=== PATIENT | female | born 1955 | race Caucasian/White ===

== ENCOUNTER 2018-12-27 09:23 | Inpatient (IN) | payer MEDICARE ==
[~2018-12-27] VITALS: Ht 152.4 cm; Wt 79.8 kg
--- NOTE | 2018-12-27 09:55 | NUR ---
GRAIN ELEVATOR AGENTSAGGER SOAK NOTES Received Patient resting and watching TV in bed. A/O x 4. VS stable with no acute distress. Breathing even and unlabored on 4LPM via NC with no respiratory distress. Denies pain. Telemonitor in place and operational reading SR HR 80s. 20g PIV on LFA clean, dry, intact and flushing well. All needs rendered at this time. Will continue to monitor.
[2018-12-27] MEDS ORDERED: FLUO20CA36 PO (10:30)
[2018-12-27] MEDS ORDERED: INSU100V7 SQ (10:30)
[2018-12-27] MEDS ORDERED: BLOO-538 IN (10:30)
[2018-12-27] MEDS ORDERED: GABA-534 PO (10:30)
[2018-12-27] MEDS ORDERED: GLUC100017 PO (10:30)
[2018-12-27] MEDS ORDERED: ROSU5TAB PO (10:30)
[2018-12-27] MEDS ORDERED: CALC667C6 PO (10:30)
[2018-12-27] MEDS ORDERED: PANT40TA4 PO (10:30)
[2018-12-27] MEDS ORDERED: CALC0.253 PO (10:30)
[2018-12-27] MEDS ORDERED: POLY17PO4 PO (10:30)
[2018-12-27] MEDS ORDERED: ASPI-605 PO (10:30)
[2018-12-27] MEDS ORDERED: BUME2TAB7 PO (10:30)
[2018-12-27] MEDS ORDERED: CARV12.5 PO (10:30)
[2018-12-27] MEDS ORDERED: INSU100V39 SQ (10:30)
[2018-12-27] MEDS ORDERED: AMLO10TA4 PO (10:30)
[2018-12-27] MEDS ORDERED: CHLO473M3 MM (10:30)
[2018-12-27] MEDS ORDERED: LATA7.5D OP (10:30)
[2018-12-27] MEDS ORDERED: AZEL137S7 NS (10:30)
[2018-12-27] MEDS ORDERED: NITR0.4T48 SL (10:37)
[2018-12-27] MEDS ORDERED: DIME25TA2 PO (10:37)
[2018-12-27] MEDS ORDERED: MECL-126 PO (10:37)
[2018-12-27] MEDS ORDERED: ACET-907 PO (10:37)
[2018-12-27] MEDS ORDERED: ZOLP5TAB2 PO (10:37)
[2018-12-27] MEDS ORDERED: PHEN180S MM (10:37)
[2018-12-27] MEDS ORDERED: SENN-18 PO (10:37)
[2018-12-27 12:00] VITALS: BP 159/77
[2018-12-27] MEDS ORDERED: NITROGLYCERIN 0.4 MG/TAB BOTTLE SL PRN (13:30)
[2018-12-27] MEDS ORDERED: MAGNESIUM HYDROXIDE 30 ML UDC PO PRN (13:30)
[2018-12-27] MEDS ORDERED: DEXTROSE 50%-WATER 50 ML DISP.SYRIN IV PRN (13:30)
[2018-12-27] MEDS ORDERED: Z GUARD REMEDY 2 OZ OINT TP PRN (13:30)
[2018-12-27] MEDS ORDERED: SENNOSIDES 8.6 MG TABLET PO PRN (13:30)
[2018-12-27] MEDS ORDERED: HYDROCODONE/APAP 5/325MG 1 EACH TABLET PO PRN (13:30)
[2018-12-27] MEDS ORDERED: MAG HYDROX/AL HYDROX/SIMETH 30 ML UDC PO PRN (13:30)
[2018-12-27] MEDS ORDERED: ONDANSETRON HCL/PF 4 MG/2 ML VIAL IVP PRN (13:30)
[2018-12-27 14:11] LABS: BASOPHILS # (AUTO) 0.1 /CMM (0.0-0.2); BASOPHILS % (AUTO) 0.7 % (0.0-2.0); EOSINOPHILS % (AUTO) 1.9 % (0.0-6.0); HEMATOCRIT 35 % (33-45); HEMOGLOBIN 11.8 g/dL (11.5-14.8); LYMPHOCYTES # (AUTO) 0.9 /CMM (0.8-4.8); LYMPHOCYTES % (AUTO) 9.8 % (20.0-44.0); MEAN CORPUSCULAR HGB CONC 34 g/dl (31.0-36.0); MEAN CORPUSCULAR VOLUME 90 fL (82-100); MONOCYTES # (AUTO) 0.9 /CMM (0.1-1.30); MONOCYTES % (AUTO) 9.4 % (2.0-12.0); NEUTROPHILS # (AUTO) 7.4 /CMM (1.8-8.9); NEUTROPHILS % (AUTO) 78.2 % (43.0-81.0); PLATELET COUNT (AUTO) 206 /CMM (150-450); RED BLOOD CELL COUNT(AUTO) 3.83 MIL/uL (4.0-5.2); WHITE BLOOD COUNT (AUTO) 9.5 K/uL (4.3-11.0)
[2018-12-27 14:30] LABS: ALBUMIN 3.2 g/dL (3.4-5.0); BILIRUBIN,TOTAL 0.5 mg/dL (0.2-1.0); CALCIUM, SERUM 8.8 mg/dL (8.5-10.1); CREATININE 2.3 mg/dL (0.6-1.3); POTASSIUM 3.9 mmol/L (3.5-5.1)
--- NOTE | 2018-12-27 15:37 | NUR ---
SOCIAL MEDIA DESIGNER NOTES Room change from 109-1 to 101-1. Patient in stable condition. Will continue to monitor.
[2018-12-27 16:00] VITALS: BP 173/78
[2018-12-27] MEDS ORDERED: PHENOL-PHENOLATE CHLORASEPTIC 177 ML SPRAY MM PRN (16:00)
[2018-12-27] MEDS ORDERED: MECLIZINE HCL 25 MG TABLET PO PRN (16:00)
[2018-12-27] MEDS: CEFTRIAXONE 1 G in IV D5W 50 ML IV SCH (16:27)
[2018-12-27] MEDS: CALCIUM ACETATE 667 MG TABLET PO SCH (16:27)
[2018-12-27] MEDS: CARVEDILOL 12.5 MG TABLET PO SCH (16:28)
[2018-12-27] MEDS: CHLORHEXIDINE GLUCONATE 15 ML UDC MM SCH ×2 (16:28→17:00)
[2018-12-27] MEDS: GUAIFENESIN/D-METHORPHAN HB 5 ML UDC PO PRN (17:13)
[2018-12-27] MEDS: BLOOD SUGAR DIAGNOSTIC 1 EACH STRIP IN SCH ×2 (17:14→21:49)
[2018-12-27] MEDS: AZITHROMYCIN 500 MG in IV D5W 250 ML IV SCH ×2 (17:17→18:00)
--- NOTE | 2018-12-27 19:15 | NUR ---
BLEACH ANALYST NOTES Obtained order for Lorazepam 0.5mg PO x one time only, per Patients request from Rody BECERRA. Will endorse to administer to oncoming shift.
--- NOTE | 2018-12-27 19:19 | NUR ---
CAN FILLER NOTES RECEIVED PT ON BED. A/O X 4. ON NASAL CANNULA NO RESPIRATORY DISTRESS NOTED. ONGOING HD. ON TELE MONITOR SR. IV ACCESS G20 ON LFA PATENT AND INTACT. HD ACCESS ON LCW , CLEAN NO BLEEDING NOTED. HEAD OF BED ELEVATED. SIDE RAILS UP. CALL LIGHT WITHIN REACH. BED ALARM ON. WILL CONTINUE TO MONITOR PT CLOSELY.
[2018-12-27] MEDS ORDERED: LORAZEPAM 0.5 MG TABLET PO ONE (19:30)
--- NOTE | 2018-12-27 19:42 | NUR ---
POWDER MILL OPERATOR CLOSING NOTES Patient resting in bed. A/O x 4. VS stable with no acute distress. Breathing even and unlabored on 2LPM via NC with no respiratory distress. Denies pain. Telemonitor in place and operational reading SR HR 80s. 20g PIV on LFA clean, dry, intact and flushing well. Patient undergoing dialysis at this time. All needs rendered at this time. Will endorse plan of care to oncoming shift.
[2018-12-27 20:00] VITALS: BP 155/84
[2018-12-27] MEDS ORDERED: ALBUTEROL HALF STRENGTH 1.25 MG/3 ML VIAL.NEB NEB PRN (21:30)
[2018-12-27] MEDS: LATANOPROST EYE DROP 0.005% 2.5 ML BOTTLE OP SCH (21:49)
[2018-12-27] MEDS: INSULIN GLARGINE, 100 UNIT/ML CARTRIDGE SQ SCH (21:50)
[2018-12-27] MEDS: INSULIN REGULAR, HUMAN 100 UNIT/ML 3 ML VIAL SQ PRN (21:52)
[2018-12-27] MEDS: ZOLPIDEM TARTRATE 5 MG TABLET PO PRN (21:52)
[2018-12-27] MEDS ORDERED: AZITHROMYCIN 500 MG in IV D5W 250 ML IV ONE (22:00)
--- NOTE | 2018-12-27 22:06 | NUR ---
DESKTOP ADMINISTRATOR NOTES CALLED PHARMACY REGARDING AZITHROMYCIN NON ADMIN DUE TO HD. PER PHARMACY ORDER ONE TIME DOSE SO THE RN CAN SCAN.
--- NOTE | 2018-12-27 22:28 | NUR ---
LATIN AMERICAN STUDIES DIRECTOR NOTES PT REQUESTING BREATHING TX. HOUSEKEEPING MANAGER ORDERED BREATHING TX Q4H PRN
[2018-12-27] MEDS ORDERED: IPRATROPIUM NEB FS 0.5 MG/2.5 ML AMPUL.NEB NEB SCH (23:30)
[2018-12-28] VITALS: BP_SYST 158; BP_SYST 162; BP_DIAS 62; BP_DIAS 71
[2018-12-28] MEDS: GUAIFENESIN/D-METHORPHAN HB 5 ML UDC PO PRN ×2 (01:18→22:16)
[2018-12-28 04:00] VITALS: BP 158/64
[2018-12-28 06:39] LABS: BASOPHILS # (AUTO) 0.1 /CMM (0.0-0.2); BASOPHILS % (AUTO) 0.6 % (0.0-2.0); EOSINOPHILS % (AUTO) 1.7 % (0.0-6.0); HEMATOCRIT 31 % (33-45); HEMOGLOBIN 11.4 g/dL (11.5-14.8); LYMPHOCYTES % (AUTO) 10.7 % (20.0-44.0); MEAN CORPUSCULAR HGB CONC 37 g/dl (31.0-36.0); MEAN CORPUSCULAR VOLUME 98 fL (82-100); MONOCYTES % (AUTO) 10.9 % (2.0-12.0); NEUTROPHILS % (AUTO) 76.1 % (43.0-81.0); PLATELET COUNT (AUTO) 169 /CMM (150-450); RED BLOOD CELL COUNT(AUTO) 3.15 MIL/uL (4.0-5.2); WHITE BLOOD COUNT (AUTO) 9.2 K/uL (4.3-11.0)
[2018-12-28 06:50] LABS: THYROID STIMULATING HORMONE 1.715 uIU/mL (0.358-3.74)
[2018-12-28 07:05] LABS: CALCIUM, SERUM 8.9 mg/dL (8.5-10.1); CREATININE 1.8 mg/dL (0.6-1.3); MAGNESIUM 1.9 mg/dL (1.8-2.4); PHOSPHORUS 3.6 mg/dL (2.5-4.9)
--- NOTE | 2018-12-28 07:25 | NUR ---
MANAGER ACCOUNT MANAGEMENT NOTES NO ACUTE CHANGES NOTED DURING THE SHIFT. NO RESPIRATORY DISTRESS NOTED. PROVIDED COMFORT AND SAFETY. WILL ENDORSE TO THE AM NURSE FOR CONTINUITY OF CARE.
--- NOTE | 2018-12-28 07:30 | NUR ---
SHIPSMITH NOTES RECEIVED PATIENT IN BED, ON HIGH BACK REST. RESPONSIVE TO VERBAL STIMULI, A/O X 4. ON NASAL CANNULA, WITH OXYGEN AT 2 LPM, BREATHING EVEN AND UNLABORED. NO COMPLAINTS OF PAIN OF ANY KIND. SR ON THE MONITOR, WITH HR ON THE 60'S. IV ACCESS NOTED ON THE LFA, G [address], DRESSING INTACT. PATENT ON FLUSHING: SL. HD ACCESS ON LCW , DRESSING CDI, NO BLEEDING NOTED. PATIENT ENCOURAGE TO CALL FOR HELP AND ASSISTANCE. CALL LIGHT PLACED WITHIN REACH. SAFETY MEASURES PUT IN PLACE.BED ALARM ON. WILL CONTINUE TO MONITOR PATIENT CLOSELY.
[2018-12-28] MEDS: ALBUTEROL HALF STRENGTH 1.25 MG/3 ML VIAL.NEB NEB PRN ×2 (07:31→22:55)
[2018-12-28] MEDS: IPRATROPIUM NEB FS 0.5 MG/2.5 ML AMPUL.NEB NEB PRN ×2 (07:31→22:55)
[2018-12-28] MEDS: PANTOPRAZOLE 40 MG TABLET.DR PO SCH (07:48)
--- NOTE | 2018-12-28 07:53 | NUR ---
STEAM BOX HAND OPENING NOTES RECEIVED PATIENT IN BED, AOX4. SHE IS ON 2L OF O2 VIA NASAL CANULA, SHOWS NO SIGNS OF RESP. DISTRESS, REPORTED NON-PRODUCTIVE COUGH, NO PAIN. TELE MONITOR SHOWING SR. 20G SALINE LOCK ON LEFT FA. SIDE RAILS UP, BED IN LOWEST AND LOCKED POSITION, HOB ELEVATED, CALL LIGHT WITHIN REACH, WILL CONTINUE TO MONITOR
[2018-12-28 08:00] VITALS: BP 165/68
[2018-12-28] MEDS: CARVEDILOL 12.5 MG TABLET PO SCH ×2 (08:19→17:01)
[2018-12-28] MEDS: GABAPENTIN 300 MG CAPSULE PO SCH (08:20)
[2018-12-28] MEDS: AMLODIPINE BESYLATE 10 MG TABLET PO SCH (08:20)
[2018-12-28] MEDS: ATORVASTATIN 10 MG TABLET PO SCH (08:21)
[2018-12-28] MEDS: FLUOXETINE HCL 20 MG CAPSULE PO SCH (08:21)
[2018-12-28] MEDS: ASPIRIN EC 81 MG TABLET.DR PO SCH (08:21)
[2018-12-28] MEDS: CALCIUM ACETATE 667 MG TABLET PO SCH ×3 (08:21→17:01)
[2018-12-28] MEDS: CALCITRIOL 0.25 MCG CAPSULE PO SCH (08:21)
[2018-12-28] MEDS: POLYETHYLENE GLYCOL 3350 17 GM POWD.PACK PO SCH (08:22)
[2018-12-28] MEDS: CHLORHEXIDINE GLUCONATE 15 ML UDC MM SCH ×2 (08:22→17:01)
[2018-12-28] MEDS: BLOOD SUGAR DIAGNOSTIC 1 EACH STRIP IN SCH ×4 (08:23→22:12)
[2018-12-28] MEDS: BUMETANIDE (1 MG) 1 MG TABLET PO SCH (08:24)
[2018-12-28] MEDS: AZELASTINE NASAL SPRAY 30 ML BOTTLE NS SCH (08:28)
[2018-12-28] MEDS ORDERED: GLUCOSAMINE SULFATE PO SCH (09:00)
--- NOTE | 2018-12-28 09:00 | NUR ---
RN NOTES PATIENT REFUSED BUMEX " I WONT TAKE THAT, IM GETTING DIALYZE TODAY"
[2018-12-28] MEDS ORDERED: LORAZEPAM 0.5 MG TABLET PO PRN (11:00)
[2018-12-28 12:00] VITALS: BP 126/60
[2018-12-28] MEDS: ACETAMINOPHEN 325 MG TABLET PO PRN (12:06)
[2018-12-28 12:36] LABS: APPEARANCE,URINE SL CLOUDY (CLEAR); BILIRUBIN,URINE NEGATIVE (NEGATIVE); BLOOD, URINE NEGATIVE Ery/uL (NEGATIVE); KETONES,URINE NEGATIVE (NEGATIVE); LEUKOCYTE ESTERASE ,URINE NEGATIVE (NEGATIVE); NITRITE, URINE NEGATIVE (NEGATIVE); PROTEIN,URINE 2+ mg/dl (NEGATIVE); UGLUCOSE NEGATIVE (NEGATIVE); UROBILINOGEN,URINE 0.2 EU/dL (0.2)
[2018-12-28 13:34] LABS: COLOR,URINE DARK YELLOW (YELLOW)
[2018-12-28 13:35] LABS: BACTERIA,URINE Rare /HPF (None Seen); SQUAMOUS EPITHELIAL CELL,UR Many /HPF (None Seen); WBC,URINE 0-2 /HPF (0-3)
[2018-12-28 13:36] LABS: RBC,URINE 0-2 /HPF (0-2)
[2018-12-28] MEDS ORDERED: MENTHOL/CETYLPYRD (CEPACOL) 1 LOZ LOZENGE PO PRN (14:30)
[2018-12-28 16:00] VITALS: BP_SYST 156; BP_SYST 158; BP_DIAS 62
[2018-12-28] MEDS: CEFTRIAXONE 1 G in IV D5W 50 ML IV SCH (16:01)
[2018-12-28] MEDS: LACTOBACILLUS RHAMNOSUS GG 1 EACH CAP.SPRINK PO SCH (17:01)
[2018-12-28] MEDS: INSULIN REGULAR, HUMAN 100 UNIT/ML 3 ML VIAL SQ PRN ×2 (17:48→22:15)
--- NOTE | 2018-12-28 19:29 | NUR ---
RN CLOSING NOTES PATIENT IS RESTING COMFORTABLY IN HER BED, NOT IN ANY FORM OF DISTRESS, NO ACUTE CHANGES OCCURRED THROUGHOUT THE SHIFT. SAFETY MEASURES IN PLACE, CALL LIGHT WITHIN REACH. WILL ENDORSE TO PM NURSE.
--- NOTE | 2018-12-28 19:30 | NUR ---
PHLEBOTOMY SERVICES TECHNICIAN OPENING NOTES RECEIVED PATIENT IN BED, AOX4, ABLE TO VERBALIZED NEEDS AND CONCERNS, ON 2L OF O2 VIA NASAL CANULA SATURATING WELL, NO S/S SOB/OF ACUTE DISTRESS, NO C/O NO PAIN OR DISCOMFORT, NSR ON TELE MONITOR, HR IN THE 60S AT THIS TIME, IV ACCESS LFA 20G S/L SIDE RAILS UP, BED IN LOWEST AND LOCKED POSITION, HOB ELEVATED, CALL LIGHT WITHIN REACH, WILL CONTINUE TO MONITOR CLOSELY.
[2018-12-28 20:00] VITALS: BP_SYST 157; BP_SYST 160; BP_DIAS 64
[2018-12-28] MEDS: LATANOPROST EYE DROP 0.005% 2.5 ML BOTTLE OP SCH (22:12)
[2018-12-28] MEDS: INSULIN GLARGINE, 100 UNIT/ML CARTRIDGE SQ SCH (22:13)
[2018-12-29] VITALS: BP 138/62
[2018-12-29] MEDS: ZOLPIDEM TARTRATE 5 MG TABLET PO PRN (01:14)
[2018-12-29 04:00] VITALS: BP 144/64
[2018-12-29] MEDS: ALBUTEROL HALF STRENGTH 1.25 MG/3 ML VIAL.NEB NEB PRN ×4 (06:24→23:27)
[2018-12-29] MEDS: IPRATROPIUM NEB FS 0.5 MG/2.5 ML AMPUL.NEB NEB PRN ×4 (06:24→23:27)
--- NOTE | 2018-12-29 06:30 | NUR ---
RN CLOSING NOTES, PATIENT REMAIN STABLE THROUGHOUT THE NIGHT, NO S/S SOB/OF ACUTE DISTRESS, NO C/O NO PAIN OR DISCOMFORT, CALL LIGHT WITHIN REACH, WILL ENDORSE CONTINUITY OF CARE TO ONCOMING NURSE.
[2018-12-29 07:30] LABS: BASOPHILS # (AUTO) 0.1 /CMM (0.0-0.2); EOSINOPHILS % (AUTO) 4.1 % (0.0-6.0); HEMATOCRIT 32 % (33-45); HEMOGLOBIN 11.3 g/dL (11.5-14.8); LYMPHOCYTES # (AUTO) 1.2 /CMM (0.8-4.8); LYMPHOCYTES % (AUTO) 16.3 % (20.0-44.0); MEAN CORPUSCULAR HGB CONC 36 g/dl (31.0-36.0); MEAN CORPUSCULAR VOLUME 96 fL (82-100); MONOCYTES # (AUTO) 0.8 /CMM (0.1-1.30); NEUTROPHILS # (AUTO) 5.1 /CMM (1.8-8.9); NEUTROPHILS % (AUTO) 67.6 % (43.0-81.0); PLATELET COUNT (AUTO) 185 /CMM (150-450); RED BLOOD CELL COUNT(AUTO) 3.29 MIL/uL (4.0-5.2); WHITE BLOOD COUNT (AUTO) 7.6 K/uL (4.3-11.0)
[2018-12-29 07:43] LABS: CREATININE 2.1 mg/dL (0.6-1.3); POTASSIUM 4.1 mmol/L (3.5-5.1)
[2018-12-29] MEDS: PANTOPRAZOLE 40 MG TABLET.DR PO SCH (07:56)
[2018-12-29 08:00] VITALS: BP 163/82
[2018-12-29] MEDS: BLOOD SUGAR DIAGNOSTIC 1 EACH STRIP IN SCH ×4 (08:03→22:28)
--- NOTE | 2018-12-29 08:33 | NUR ---
RN OPENING NOTES RECEIVED PATIENT IN RESTING COMFORTABLY IN BED. SHE IS AO X4, DENIES ANY PAIN OR DISCOMFORT. PT HAS A 20G SL ON LFA, PATENT. PT IS ON 2L OF O2 VIA NASAL CANULA. DISCUSSED PLAN OF CARE WITH PATIENT. BED IS IN LOWEST AND LOCKED POSITION, HEAD OF THE BED ELEVATED, CALL LIGHT WITHIN REACH. WILL CONTINUE TO MONITOR FOR ANY CHANGES.
[2018-12-29] MEDS: AZELASTINE NASAL SPRAY 30 ML BOTTLE NS SCH (08:50)
[2018-12-29] MEDS: CHLORHEXIDINE GLUCONATE 15 ML UDC MM SCH ×2 (08:51→16:37)
[2018-12-29] MEDS: CALCIUM ACETATE 667 MG TABLET PO SCH ×3 (08:51→16:39)
[2018-12-29] MEDS: ATORVASTATIN 10 MG TABLET PO SCH (08:51)
[2018-12-29] MEDS: CALCITRIOL 0.25 MCG CAPSULE PO SCH (08:51)
[2018-12-29] MEDS: BUMETANIDE (1 MG) 1 MG TABLET PO SCH (08:51)
[2018-12-29] MEDS: AMLODIPINE BESYLATE 10 MG TABLET PO SCH (08:53)
[2018-12-29] MEDS: FLUOXETINE HCL 20 MG CAPSULE PO SCH (08:53)
[2018-12-29] MEDS: LACTOBACILLUS RHAMNOSUS GG 1 EACH CAP.SPRINK PO SCH ×2 (08:53→16:39)
[2018-12-29] MEDS: CARVEDILOL 12.5 MG TABLET PO SCH ×2 (08:54→16:39)
[2018-12-29] MEDS: GABAPENTIN 300 MG CAPSULE PO SCH (08:54)
[2018-12-29] MEDS: ASPIRIN EC 81 MG TABLET.DR PO SCH (08:54)
[2018-12-29] MEDS: POLYETHYLENE GLYCOL 3350 17 GM POWD.PACK PO SCH (08:59)
--- NOTE | 2018-12-29 11:15 | NUR ---
RN NOTES PATIENT WAS SEEN BY Hilton BELLAMY NP. PATIENTS O2 SATURATION AND BREATHING WAS ASSESSED ON ROOM AIR. HER O2 SATURATION IS 95% ON RA WITH NO SOB. WILL CONTINUE TO MONITOR FOR ANY CHANGES.
[2018-12-29] MEDS: INSULIN REGULAR, HUMAN 100 UNIT/ML 3 ML VIAL SQ PRN ×2 (11:58→17:48)
[2018-12-29] MEDS ORDERED: CEFU500T66 PO (12:27)
[2018-12-29] MEDS ORDERED: AZIT500T4 PO (12:27)
[2018-12-29] MEDS: CEFTRIAXONE 1 G in IV D5W 50 ML IV SCH (15:57)
[2018-12-29 16:00] VITALS: BP 145/81
[2018-12-29] MEDS: ACETAMINOPHEN 325 MG TABLET PO PRN (16:20)
--- NOTE | 2018-12-29 16:20 | NUR ---
RN NOTES PATIENT WOKE UP FROM A NAP AND REPORTED A HEADACHE. PATIENT WAS GIVEN 650 MG TYLENOL PRN, WILL REASSESS AND CONTINUE MONITORING.
[2018-12-29] MEDS: AZITHROMYCIN 500 MG in IV D5W 250 ML IV SCH (17:57)
--- NOTE | 2018-12-29 19:10 | NUR ---
CAMPUS RECRUITER NOTES RECEIVED PATIENT IN BED AWAKE AND ABLE TO MAKE NEEDS KNOWN. PT AOX4. RESPIRATIONS EVEN AND UNLABORED WITH NO S/S OF ACUTE DISTRESS OR SOB NOTED. PT ON 2L 02 VIA NC TOLERATING WELL. NO COMPLAINTS OF PAIN AT THIS TIME. PT WITH LFA @20G PATENT AND INTACT AND SL. SAFETY MEASURES IN PLACE WITH BED IN LOWEST LOCKED POSITION WITH SIDE RAILS UP X2. CALL LIGHT WITHIN REACH. WILL CONTINUE TO MONITOR.
--- NOTE | 2018-12-29 19:12 | NUR ---
RN CLOSING NOTES PATIENT IS RESTING IN BED COMFORTABLY. DOES NOT SHOW ANY SIGNS OF DISTRESS OR DISCOMFORT. BED IS IN LOWEST AND LOCKED POSITION, SAFETY MEASURES HAVE BEEN IMPLEMENTED, CALL LIGHT WITHIN REACH. PATIENT HAS BEEN ENDORSE TO NIGHTSHIFT NURSE FOR CONTINUOUS CARE.
[2018-12-29 20:00] VITALS: BP 108/37
[2018-12-29 22:00] VITALS: BP 107/61
[2018-12-29] MEDS: INSULIN GLARGINE, 100 UNIT/ML CARTRIDGE SQ SCH (22:00)
[2018-12-29] MEDS: LATANOPROST EYE DROP 0.005% 2.5 ML BOTTLE OP SCH (22:28)
[2018-12-30] VITALS: BP 107/61
[2018-12-30] MEDS: IPRATROPIUM NEB FS 0.5 MG/2.5 ML AMPUL.NEB NEB PRN (05:22)
[2018-12-30] MEDS: ALBUTEROL HALF STRENGTH 1.25 MG/3 ML VIAL.NEB NEB PRN (05:22)
--- NOTE | 2018-12-30 07:22 | NUR ---
MS RN NOTES PATIENT IN BED ASLEEP BUT EASILY AWOKEN VERBALLY OR BY TOUCH. PT A/O X4 AND ABLE TO MAKE NEEDS KNOWN. RESPIRATIONS EVEN AND UNLABORED WITH NO S/S OF ACUTE DISTRESS OR SOB NOTED THROUGHOUT SHIFT. PT ON 2L 02 VIA NC TOLERATING WELL. NO COMPLAINTS OF PAIN AT THIS TIME. PT WITH LFA @20G PATENT AND INTACT AND SL. SAFETY MEASURES IN PLACE WITH BED IN LOWEST LOCKED POSITION WITH SIDE RAILS UP X2. CALL LIGHT WITHIN REACH. WILL ENDORSE TO ONCOMING NURSE FOR KYLEIGH.
--- NOTE | 2018-12-30 07:30 | NUR ---
RN NOTE PATIENT IN BED AWAKE ALERT. IV PATENT AND INTACT. D/C ORDER WAS WRITTEN PRIOR TO SHIFT. NIGHT RN ENDORSED PATIENT WILL BE TRANSPORTED TO [facility] TODAY AT 0900. NIGHT NURSE ENDORSED PAPERWORK FOR DISCHARG WAS DONE AND IT WAS NOT. NIGHT NURSE COULD HAVE TAKEN PATIENT AND ASSITED HER TO SHOWER, BUT IT WASNT DONE. PATIENT GIVEN MEDICATIONS, PATIENT REFUSED BUMEX CULTURELLE AND GABAPENTIN. SHE STATED SHE DIDNT WANT HER BLOOD PRESSUR TO DROP TO LOW, AND SHE DIDNT NORMALLY TAKE CULTUREELLE. NON ADMIN DOCUMENTED. PATIENT SIGNED BELONGINGS LIST CHIEF DESIGN ENGINEER ASSIST IN TRANSPORT, IV REMOVIED AND ALL PAPERWORK REGARDING STAY IN FACILITY WAS DOCUMENTED
[2018-12-30] MEDS: CHLORHEXIDINE GLUCONATE 15 ML UDC MM SCH (08:09)
[2018-12-30] MEDS: CALCITRIOL 0.25 MCG CAPSULE PO SCH (08:10)
[2018-12-30] MEDS: PANTOPRAZOLE 40 MG TABLET.DR PO SCH (08:10)
[2018-12-30] MEDS: CALCIUM ACETATE 667 MG TABLET PO SCH (08:11)
[2018-12-30] MEDS: FLUOXETINE HCL 20 MG CAPSULE PO SCH (08:11)
[2018-12-30] MEDS: ATORVASTATIN 10 MG TABLET PO SCH (08:12)
[2018-12-30] MEDS: ASPIRIN EC 81 MG TABLET.DR PO SCH (08:12)
[2018-12-30] MEDS: AZELASTINE NASAL SPRAY 30 ML BOTTLE NS SCH (08:13)
[2018-12-30] MEDS: BUMETANIDE (1 MG) 1 MG TABLET PO SCH (08:13)
[2018-12-30] MEDS: CARVEDILOL 12.5 MG TABLET PO SCH (08:14)
[2018-12-30 08:15] VITALS: BP 169/81
[2018-12-30] MEDS: AMLODIPINE BESYLATE 10 MG TABLET PO SCH (08:15)
[2018-12-30] MEDS: POLYETHYLENE GLYCOL 3350 17 GM POWD.PACK PO SCH (08:16)
[2018-12-30] MEDS: BLOOD SUGAR DIAGNOSTIC 1 EACH STRIP IN SCH (08:19)
--- NOTE | 2018-12-30 08:50 | NUR ---
SEW ON OPERATOR NOTE PATIENT D/C ORDER WRITEEN. CLEAR FOR DIALYSIS AND TO BE TAKEN ACROSS THE BUILDING IN [facility] WITH NEPHROLOGIST AND RN. PATIENT VITALS WNL, NO DISTRESS, PAPERWORK SIGNED AND COMPLTETED AT THIS TIME. PERSCRIPTIONS GIVEN TO PATIENT, HAS A GOOD UNDERSTANDING OF HEALTH.
[2018-12-30] MEDS: GABAPENTIN 300 MG CAPSULE PO SCH (09:00)
[2018-12-30] MEDS: LACTOBACILLUS RHAMNOSUS GG 1 EACH CAP.SPRINK PO SCH (09:00)
== END 2018-12-30 09:00 | disposition home or self-care (01) | DRG 291 ==
LOC: TELE1 09:50 → MEDSG1 12-29 08:40
PROVIDERS: ADMIT Nurse Practitioner Acute Care; ATTEND Nurse Practitioner Acute Care
PROC: 5A1D70Z Performance of Urinary Filtration, Intermittent, Less than 6 Hours Per Day (ICD-10-PCS; principal; 2018-12-27)
DX: I13.2 Hypertensive heart and chronic kidney disease with heart failure and with stage 5 chronic kidney disease, or end stage renal disease (principal); I50.33 Acute on chronic diastolic (congestive) heart failure; N18.6 End stage renal disease; J96.01 Acute respiratory failure with hypoxia; J15.9 Unspecified bacterial pneumonia; E11.22 Type 2 diabetes mellitus with diabetic chronic kidney disease; I25.10 Atherosclerotic heart disease of native coronary artery without angina pectoris; Z95.5 Presence of coronary angioplasty implant and graft; E78.5 Hyperlipidemia, unspecified; I25.2 Old myocardial infarction; D72.829 Elevated white blood cell count, unspecified; Z95.0 Presence of cardiac pacemaker; Z82.49 Family history of ischemic heart disease and other diseases of the circulatory system; Z88.0 Allergy status to penicillin; Z79.4 Long term (current) use of insulin
CPT/HCPCS: 36415; 71045-TC; 80048-TC; 80053-TC; 80061-TC; 81000-TC; 82962-TC; 83735-TC; 84100-TC; 84443-TC; 85025-TC; 86706; 87040-TC; 87081-TC; 87086-TC; 87340; 90935-TC; 93307-TC; 94799-TC; 97116-TC; 97530-TC; A6253; G0378; J0456; J0696; J1815; J7030; J7050; J7060

== ENCOUNTER 2019-05-11 20:37 | Inpatient (IN) | payer MEDICARE ==
[~2019-05-11] VITALS: Ht 152.4 cm; Wt 81.6 kg
[~2019-05-11 20:37] MED LIST: ACET-907 PO; AMLO10TA4 PO; ASPI-605 PO; AZEL137S7 NS; AZIT500T4 PO; BLOO-538 IN; BUME2TAB7 PO; CALC0.253 PO; CALC667C6 PO; CARV12.5 PO; CEFU500T66 PO; CHLO473M3 MM; DIME25TA2 PO; FLUO20CA36 PO; GABA-534 PO; GLUC100017 PO; INSU100V39 SQ; INSU100V7 SQ; LATA7.5D OP; MECL-126 PO; NITR0.4T48 SL; PANT40TA4 PO; PHEN177S46 MM; POLY17PO4 PO; ROSU5TAB PO; SENN-18 PO; ZOLP5TAB2 PO
[2019-05-11] MEDS ORDERED: ONDANSETRON HCL/PF 4 MG/2 ML VIAL IVP ONE (21:30)
[2019-05-11] MEDS ORDERED: ONDANSETRON HCL/PF 4 MG/2 ML VIAL ONE (21:32)
[2019-05-11 21:34] LABS: BASOPHILS # (AUTO) 0.1 /CMM (0.0-0.2); BASOPHILS % (AUTO) 0.6 % (0.0-2.0); EOSINOPHILS % (AUTO) 1.4 % (0.0-6.0); HEMATOCRIT 35 % (33-45); HEMOGLOBIN 11.8 g/dL (11.5-14.8); LYMPHOCYTES # (AUTO) 0.8 /CMM (0.8-4.8); LYMPHOCYTES % (AUTO) 8.1 % (20.0-44.0); MEAN CORPUSCULAR HGB CONC 34 g/dl (31.0-36.0); MEAN CORPUSCULAR VOLUME 92 fL (82-100); MONOCYTES # (AUTO) 0.9 /CMM (0.1-1.30); MONOCYTES % (AUTO) 8.7 % (2.0-12.0); NEUTROPHILS # (AUTO) 8.4 /CMM (1.8-8.9); NEUTROPHILS % (AUTO) 81.2 % (43.0-81.0); PLATELET COUNT (AUTO) 109 /CMM (150-450); RED BLOOD CELL COUNT(AUTO) 3.75 MIL/uL (4.0-5.2); WHITE BLOOD COUNT (AUTO) 10.3 K/uL (4.3-11.0)
[2019-05-11 21:47] LABS: CREATININE 2.1 mg/dL (0.6-1.3); POTASSIUM 3.6 mmol/L (3.5-5.1)
[2019-05-11 21:53] LABS: ALBUMIN 3.4 g/dL (3.4-5.0); BILIRUBIN,DIRECT 0.1 mg/dL (0.0-0.2); BILIRUBIN,TOTAL 0.7 mg/dL (0.2-1.0); TOTAL PROTEIN, SERUM 6.8 g/dL (6.4-8.2)
[2019-05-11] MEDS ORDERED: BUPR100T6 PO (22:53)
[2019-05-11] MEDS ORDERED: ACETAMINOPHEN 325 MG TABLET PO PRN (23:00)
[2019-05-11] MEDS ORDERED: SENNOSIDES 8.6 MG TABLET PO PRN (23:00)
[2019-05-11] MEDS ORDERED: MAG HYDROX/AL HYDROX/SIMETH 30 ML UDC PO PRN (23:00)
[2019-05-11] MEDS ORDERED: *INSULIN REGULAR(HUMULIN R)HUM 100 UNIT/ML VIAL SQ PRN (23:00)
[2019-05-11] MEDS ORDERED: HYDROCODONE/APAP 5/325MG 1 EACH TABLET PO PRN (23:00)
[2019-05-11] MEDS ORDERED: DEXTROSE 50%-WATER 50 ML DISP.SYRIN IV PRN (23:00)
[2019-05-11] MEDS ORDERED: MAGNESIUM HYDROXIDE 30 ML UDC PO PRN (23:00)
[2019-05-11] MEDS ORDERED: Z GUARD REMEDY 2 OZ OINT TP PRN (23:00)
[2019-05-11] MEDS ORDERED: ONDANSETRON HCL/PF 4 MG/2 ML VIAL IVP PRN (23:00)
[2019-05-11] MEDS ORDERED: ACETAMINOPHEN W/ CODEINE#3 1 EA TABLET PO PRN (23:00)
[2019-05-12] VITALS: BP 146/95
[2019-05-12 04:00] VITALS: BP 138/81
[2019-05-12 04:20] LABS: BASOPHILS % (AUTO) 0.6 % (0.0-2.0); EOSINOPHILS % (AUTO) 1.8 % (0.0-6.0); HEMATOCRIT 35 % (33-45); HEMOGLOBIN 12.1 g/dL (11.5-14.8); LYMPHOCYTES # (AUTO) 1.5 /CMM (0.8-4.8); LYMPHOCYTES % (AUTO) 20.3 % (20.0-44.0); MEAN CORPUSCULAR HGB CONC 34 g/dl (31.0-36.0); MEAN CORPUSCULAR VOLUME 92 fL (82-100); MONOCYTES # (AUTO) 0.8 /CMM (0.1-1.30); MONOCYTES % (AUTO) 10.9 % (2.0-12.0); NEUTROPHILS # (AUTO) 4.8 /CMM (1.8-8.9); NEUTROPHILS % (AUTO) 66.4 % (43.0-81.0); PLATELET COUNT (AUTO) 126 /CMM (150-450); WHITE BLOOD COUNT (AUTO) 7.3 K/uL (4.3-11.0)
[2019-05-12 04:40] LABS: CALCIUM, SERUM 9.1 mg/dL (8.5-10.1); CREATININE 2.3 mg/dL (0.6-1.3); MAGNESIUM 2.1 mg/dL (1.8-2.4); PHOSPHORUS 4.4 mg/dL (2.5-4.9); POTASSIUM 4.4 mmol/L (3.5-5.1)
[2019-05-12] MEDS ORDERED: MECLIZINE HCL 12.5 MG TABLET PO PRN (07:00)
[2019-05-12] MEDS ORDERED: PHENOL-PHENOLATE CHLORASEPTIC 177 ML SPRAY MM PRN (07:00)
[2019-05-12] MEDS ORDERED: dimenhyDRINATE 50 MG TABLET PO PRN (07:00)
[2019-05-12 08:00] VITALS: BP 121/54
[2019-05-12] MEDS: PANTOPRAZOLE 40 MG TABLET.DR PO SCH (08:06)
[2019-05-12] MEDS: BLOOD SUGAR DIAGNOSTIC 1 EACH STRIP VI SCH ×4 (08:06→21:20)
[2019-05-12] MEDS: ATORVASTATIN 10 MG TABLET PO SCH (08:07)
[2019-05-12] MEDS: AZELASTINE NASAL SPRAY 30 ML BOTTLE NS SCH (08:07)
[2019-05-12] MEDS: CALCITRIOL 0.25 MCG CAPSULE PO SCH ×2 (08:07→08:26)
[2019-05-12] MEDS: POLYETHYLENE GLYCOL 3350 17 GM POWD.PACK PO SCH (08:07)
[2019-05-12] MEDS: ASPIRIN EC 81 MG TABLET.DR PO SCH (08:07)
[2019-05-12] MEDS: CHLORHEXIDINE GLUCONATE 15 ML UDC MM SCH ×2 (08:07→17:53)
[2019-05-12] MEDS: CALCIUM ACETATE 667 MG TABLET PO SCH ×3 (08:07→17:53)
[2019-05-12] MEDS: FLUOXETINE HCL 20 MG CAPSULE PO SCH ×2 (08:08→08:26)
[2019-05-12] MEDS: GABAPENTIN 300 MG CAPSULE PO SCH (08:08)
[2019-05-12] MEDS ORDERED: GLUCOSAMINE SULFATE PO SCH (09:00)
[2019-05-12] MEDS ORDERED: CHLORHEXIDINE GLUCONATE 473 ML BOTTLE MM SCH (09:00)
[2019-05-12 12:00] VITALS: BP 126/70
[2019-05-12] MEDS: buPROPion SR 100 MG TABLET.ER PO SCH (12:06)
[2019-05-12] MEDS: INSULIN REGULAR, HUMAN 100 UNIT/ML 3 ML VIAL SQ PRN ×2 (12:07→21:33)
[2019-05-12 16:00] VITALS: BP 130/70
[2019-05-12] MEDS: ALBUTEROL FS 2.5 MG/3 ML VIAL.NEB NEB PRN ×2 (18:09→23:40)
[2019-05-12 20:00] VITALS: BP 128/65
[2019-05-12] MEDS: LATANOPROST EYE DROP 0.005% 2.5 ML BOTTLE OP SCH (21:20)
[2019-05-13] VITALS: BP 152/63
[2019-05-13 04:00] VITALS: BP 135/65
[2019-05-13] MEDS: ALBUTEROL FS 2.5 MG/3 ML VIAL.NEB NEB PRN ×3 (05:15→19:43)
[2019-05-13 08:00] VITALS: BP 151/89
[2019-05-13] MEDS: BLOOD SUGAR DIAGNOSTIC 1 EACH STRIP VI SCH ×4 (08:18→21:25)
[2019-05-13] MEDS: PANTOPRAZOLE 40 MG TABLET.DR PO SCH (08:29)
[2019-05-13] MEDS: CHLORHEXIDINE GLUCONATE 15 ML UDC MM SCH ×2 (08:30→17:08)
[2019-05-13] MEDS: AZELASTINE NASAL SPRAY 30 ML BOTTLE NS SCH (08:30)
[2019-05-13] MEDS: ATORVASTATIN 10 MG TABLET PO SCH (08:30)
[2019-05-13] MEDS: CALCIUM ACETATE 667 MG TABLET PO SCH ×3 (08:30→17:08)
[2019-05-13] MEDS: ASPIRIN EC 81 MG TABLET.DR PO SCH (08:30)
[2019-05-13] MEDS: POLYETHYLENE GLYCOL 3350 17 GM POWD.PACK PO SCH (08:31)
[2019-05-13] MEDS: GABAPENTIN 300 MG CAPSULE PO SCH (08:31)
[2019-05-13] MEDS: THERAHONEY GEL 1.5 OZ TUBE TP SCH (08:32)
[2019-05-13] MEDS: buPROPion SR 100 MG TABLET.ER PO SCH (08:32)
[2019-05-13] MEDS: FLUOXETINE HCL 20 MG CAPSULE PO SCH (08:34)
[2019-05-13 12:00] VITALS: BP 143/70
[2019-05-13] MEDS: INSULIN REGULAR, HUMAN 100 UNIT/ML 3 ML VIAL SQ PRN (12:43)
[2019-05-13] MEDS: GUAIFENESIN 300 MG/15 ML UDC PO PRN ×2 (13:16→21:26)
[2019-05-13 16:00] VITALS: BP 137/66
[2019-05-13 20:00] VITALS: BP 150/70
[2019-05-13] MEDS: LATANOPROST EYE DROP 0.005% 2.5 ML BOTTLE OP SCH (21:25)
[2019-05-14] VITALS: BP 146/56
[2019-05-14] MEDS: ALBUTEROL FS 2.5 MG/3 ML VIAL.NEB NEB PRN ×3 (02:47→15:53)
[2019-05-14 04:00] VITALS: BP 154/55
[2019-05-14] MEDS: PANTOPRAZOLE 40 MG TABLET.DR PO SCH (07:58)
[2019-05-14] MEDS: GUAIFENESIN 300 MG/15 ML UDC PO PRN (07:58)
[2019-05-14] MEDS: CALCIUM ACETATE 667 MG TABLET PO SCH ×3 (07:58→17:09)
[2019-05-14] MEDS: INSULIN REGULAR, HUMAN 100 UNIT/ML 3 ML VIAL SQ PRN ×2 (07:59→11:40)
[2019-05-14 08:00] VITALS: BP_SYST 142; BP_SYST 163; BP_DIAS 76; BP_DIAS 81
[2019-05-14] MEDS: BLOOD SUGAR DIAGNOSTIC 1 EACH STRIP VI SCH ×3 (08:02→16:47)
[2019-05-14] MEDS: ATORVASTATIN 10 MG TABLET PO SCH (08:07)
[2019-05-14] MEDS: AZELASTINE NASAL SPRAY 30 ML BOTTLE NS SCH (08:07)
[2019-05-14] MEDS: ASPIRIN EC 81 MG TABLET.DR PO SCH (08:07)
[2019-05-14] MEDS: CHLORHEXIDINE GLUCONATE 15 ML UDC MM SCH ×2 (08:07→16:48)
[2019-05-14] MEDS: GABAPENTIN 300 MG CAPSULE PO SCH (08:07)
[2019-05-14] MEDS: POLYETHYLENE GLYCOL 3350 17 GM POWD.PACK PO SCH (08:07)
[2019-05-14] MEDS: buPROPion SR 100 MG TABLET.ER PO SCH (08:08)
[2019-05-14] MEDS: THERAHONEY GEL 1.5 OZ TUBE TP SCH (08:11)
[2019-05-14] MEDS: FLUOXETINE HCL 20 MG CAPSULE PO SCH (08:11)
[2019-05-14] MEDS ORDERED: ALBU18HF2 INH (13:29)
[2019-05-14] MEDS ORDERED: GUAI100S40 PO (13:33)
[2019-05-14 16:00] VITALS: BP_SYST 148; BP_SYST 169; BP_DIAS 71; BP_DIAS 85
== END 2019-05-14 18:33 | disposition home or self-care (01) | DRG 73 ==
LOC: ER 20:46 → TELE1 22:41 → MEDSG1 05-14 08:55
PROVIDERS: ADMIT Internal Medicine; ATTEND Nurse Practitioner Acute Care
PROC: 5A1D70Z Performance of Urinary Filtration, Intermittent, Less than 6 Hours Per Day (ICD-10-PCS; principal; 2019-05-13)
DX: G90.8 Other disorders of autonomic nervous system (principal); N18.6 End stage renal disease; I21.A1 Myocardial infarction type 2; I13.2 Hypertensive heart and chronic kidney disease with heart failure and with stage 5 chronic kidney disease, or end stage renal disease; L97.329 Non-pressure chronic ulcer of left ankle with unspecified severity; I50.32 Chronic diastolic (congestive) heart failure; Z99.2 Dependence on renal dialysis; E11.22 Type 2 diabetes mellitus with diabetic chronic kidney disease; K21.9 Gastro-esophageal reflux disease without esophagitis; I50.9 Heart failure, unspecified; D69.6 Thrombocytopenia, unspecified; L97.529 Non-pressure chronic ulcer of other part of left foot with unspecified severity; R79.1 Abnormal coagulation profile; Z95.5 Presence of coronary angioplasty implant and graft; Z83.3 Family history of diabetes mellitus; Z82.49 Family history of ischemic heart disease and other diseases of the circulatory system; F32.9 Major depressive disorder, single episode, unspecified; E78.5 Hyperlipidemia, unspecified; E66.9 Obesity, unspecified; Z68.34 Body mass index [BMI] 34.0-34.9, adult; F41.9 Anxiety disorder, unspecified; H40.9 Unspecified glaucoma; I25.10 Atherosclerotic heart disease of native coronary artery without angina pectoris; I27.20 Pulmonary hypertension, unspecified; M20.40 Other hammer toe(s) (acquired), unspecified foot; E11.621 Type 2 diabetes mellitus with foot ulcer; E11.40 Type 2 diabetes mellitus with diabetic neuropathy, unspecified; Z88.1 Allergy status to other antibiotic agents; Z88.8 Allergy status to other drugs, medicaments and biological substances; Z91.048 Other nonmedicinal substance allergy status; Z79.4 Long term (current) use of insulin; Z79.899 Other long term (current) drug therapy; Z79.82 Long term (current) use of aspirin; G47.30 Sleep apnea, unspecified; E86.9 Volume depletion, unspecified; Z95.810 Presence of automatic (implantable) cardiac defibrillator
CPT/HCPCS: 36415; 71045-TC; 80048-TC; 80061-TC; 80076-TC; 82962-TC; 83605-TC; 83735-TC; 84100-TC; 84484-TC; 85025-TC; 85730-TC; 86706; 87040-TC; 87081-TC; 87340; 93307-TC; 94799-TC; 97116-TC; 97530-TC; G0378; J1815; J2405; J8597

== ENCOUNTER 2021-09-16 14:14 | Emergency (ER) | payer BC, MEDICARE ==
[~2021-09-16] VITALS: Ht 154.9 cm; Wt 63.0 kg
[~2021-09-16 14:14] MED LIST changes: +ALBU18HF2 INH; -AZIT500T4 PO; +BUPR100T6 PO; -FLUO20CA36 PO; +GUAI100S40 PO; -PANT40TA4 PO; +PANT40TA49 PO
--- NOTE | 2021-09-16 14:15 | NUR ---
BIB [facility] FROM [facility] C/O BODY PAIN AND ELEVATED BP 190/60 PER EMS MISSED DIALYSIS TODAY. PT IS A&OX2.PT HAS A WOUND ON HER FORHEAD AND C/O GENERALIZED PAIN S/P A FALL FROM [place], PT STATED "I WAS STANDING ON A PEANUT AND FELL" PT ATTACHED TO MONITOR. DR BOUCHER AT BEDSIDE.
--- NOTE | 2021-09-16 14:39 | NUR ---
[facility] (ADMIN) [phone] / [phone] / [phone].
--- NOTE | 2021-09-16 14:59 | NUR ---
MONICA ([employer]) [phone]
[2021-09-16] MEDS ORDERED: MORPHINE SULFATE INJ 2 MG/ML DISP.SYRIN ONE (15:06)
--- NOTE | 2021-09-16 15:10 | NUR ---
IV ESTABLISHED R AC 20. CONVERTED TO SALINE LOCK.
[2021-09-16 15:12] LABS: BASOPHILS # (AUTO) 0.1 K/uL (0.0-0.2); BASOPHILS % (AUTO) 0.5 % (0.0-2.0); EOSINOPHILS % (AUTO) 1.5 % (0.0-6.0); HEMATOCRIT 31 % (33-45); HEMOGLOBIN 10.7 g/dL (11.5-14.8); LYMPHOCYTES # (AUTO) 1.1 K/uL (0.8-4.8); LYMPHOCYTES % (AUTO) 7.5 % (20.0-44.0); MEAN CORPUSCULAR HGB CONC 34 g/dl (31.0-36.0); MEAN CORPUSCULAR VOLUME 98 fL (82-100); MONOCYTES # (AUTO) 0.7 K/uL (0.1-1.30); MONOCYTES % (AUTO) 4.8 % (2.0-12.0); NEUTROPHILS # (AUTO) 12.6 K/uL (1.8-8.9); NEUTROPHILS % (AUTO) 85.7 % (43.0-81.0); PLATELET COUNT (AUTO) 237 K/uL (150-450); RED BLOOD CELL COUNT(AUTO) 3.22 MIL/uL (4.0-5.2); WHITE BLOOD COUNT (AUTO) 14.7 K/uL (4.3-11.0)
[2021-09-16 15:23] LABS: CALCIUM, SERUM 9.2 mg/dL (8.5-10.1); CREATININE 3.1 mg/dL (0.6-1.3); POTASSIUM 3.3 mmol/L (3.5-5.1)
[2021-09-16] MEDS ORDERED: MORPHINE SULFATE INJ 2 MG/ML DISP.SYRIN IV ONE (15:30)
[2021-09-16] MEDS ORDERED: CHOL100043 PO (15:43)
[2021-09-16] MEDS ORDERED: LIDO30AD10 TP (15:43)
[2021-09-16] MEDS ORDERED: ONDA4TAB5 PO (15:43)
[2021-09-16] MEDS ORDERED: HYDR-4077 PO (15:43)
[2021-09-16] MEDS ORDERED: IPRA3AMP23 IH (15:43)
[2021-09-16] MEDS ORDERED: LACO50TA2 PO (15:43)
[2021-09-16] MEDS ORDERED: FOLI0.8T2 PO (15:43)
[2021-09-16] MEDS ORDERED: APIX5TAB PO (15:43)
[2021-09-16] MEDS ORDERED: FLUO20CA42 PO (15:43)
[2021-09-16] MEDS ORDERED: SEVE800T8 PO (15:43)
[2021-09-16] MEDS ORDERED: LOSA50TA39 PO (15:43)
[2021-09-16] MEDS ORDERED: ATOR40TA PO (15:43)
[2021-09-16] MEDS ORDERED: ACET-868 PO (15:43)
[2021-09-16] MEDS ORDERED: ISOS30TA86 PO (15:43)
[2021-09-16] MEDS ORDERED: LEVO50TA8 PO (15:43)
[2021-09-16] MEDS ORDERED: BUDE1AMP IH (15:43)
[2021-09-16] MEDS ORDERED: LACT10SO3 PO (15:43)
--- NOTE | 2021-09-16 15:43 | NUR ---
PT RETURNED FROM [facility]IA [facility]
[2021-09-16] MEDS ORDERED: HYDROMORPHONE INJ 2 MG/ML DISP.SYRIN IV ONE (16:00)
[2021-09-16] MEDS ORDERED: HYDROMORPHONE 1 MG/1 ML DISP.SYRIN ONE (16:04)
--- NOTE | 2021-09-16 16:36 | NUR ---
REPORT GIVEN TO MONTRELL FROM [facility]
--- NOTE | 2021-09-16 16:45 | NUR ---
CALLED [facility] AND SET UP BLS TRANSPORT TO [facility] ETA 1800
[2021-09-16 18:21] VITALS: BP 145/68
--- NOTE | 2021-09-16 18:25 | NUR ---
[facility] ARRIVED TO TRANSPORT PT, REPORT GIVEN TO PARAMEDICS, DISCHARGE INSTRUCTION EXPLAINED TO PATIENT. IV REMOVED, PRESSURE APPLIED, GUAZE TAPED TO SITE.
--- NOTE | 2021-09-16 18:32 | NUR ---
PT TRANSPORTED TO [facility] IN STABLE CONDITION.
== END 2021-09-16 18:34 | disposition home health service (06) ==
LOC: ER 14:18
DX: M79.10 Myalgia, unspecified site (principal); I11.0 Hypertensive heart disease with heart failure; I50.9 Heart failure, unspecified; E11.22 Type 2 diabetes mellitus with diabetic chronic kidney disease; N18.6 End stage renal disease; K21.9 Gastro-esophageal reflux disease without esophagitis; E11.8 Type 2 diabetes mellitus with unspecified complications; Z99.2 Dependence on renal dialysis; Z88.0 Allergy status to penicillin; Z88.8 Allergy status to other drugs, medicaments and biological substances; Z91.018 Allergy to other foods; Z79.1 Long term (current) use of non-steroidal anti-inflammatories (NSAID); Z79.82 Long term (current) use of aspirin; Z79.899 Other long term (current) drug therapy
CPT/HCPCS: 36415; 70450; 71045; 80048; 85025; 93005; 96374; 96375; 99285; J1170; J2270